=== PATIENT | female | born 1980 ===

== ENCOUNTER 2016-11-11 01:41 | Inpatient (IN) | payer MEDICARE ==
[2016-11-11 01:54] VITALS: O2SAT 100
--- NOTE | 2016-11-11 01:54 | ED PDOC ---
Psych Transfer Clearance - Clearance Statement Clearance Statement: Reviewed vital signs, lab results and transfer papers. Patient clinically stable for psychiatric admission.
[2016-11-11] MEDS ORDERED: Alum-Mag Hydrox-Simethicone Susp (30 mL) PO PRN (02:11)
[2016-11-11] MEDS ORDERED: DiphenhydrAMINE 50 mg/ml Inj IM PRN (02:11)
[2016-11-11] MEDS ORDERED: Magnesium Hydroxide Susp 30 ml UD PO PRN (02:11)
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
[2016-11-11 06:31] LABS: ALB/GLOB RATIO 1.5 (1.0-2.1); ALKALINE PHOSPHATASE 60 U/L (38-126); ALT/SGPT 27 U/L (9-52); AST/SGOT 24 U/L (14-36); BILIRUBIN,TOTAL 0.6 mg/dl (0.2-1.3); BLOOD UREA NITROGEN 12 mg/dl (7-17); CARBON DIOXIDE 24 mmol/L (22-30); CHLORIDE 103 mmol/L (98-107); CHOLESTEROL 194 mg/dL (0-199); GFR AFRICAN-AMERICAN > 60; GLUCOSE,RANDOM 102 mg/dL (65-105); SODIUM 141 mmol/l (132-148); TOTAL PROTEIN 7.9 G/DL (6.3-8.2)
[2016-11-11 06:50] LABS: T4 7.83 ug/dl (5.5-11.0)
[2016-11-11 07:01] LABS: THYROID STIMULATING HORMONE 2.94 mIU/ML (0.46-4.68)
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
--- NOTE | 2016-11-12 15:16 | PCM.PYCHPN ---
Psychiatric Progress Note - Psychiatric Progress Note Patient seen today, length of contact: 30 minutes Patient Chief Complaint: I am hurt because they are trying to make my son hate me Problems Identified/Issues Discussed: depressed mood Medical Problems: no current medical problems reported Diagnostic Results: no notable results DSM 5 Symptoms Update: adjustment disorder with depressed mood Medication Change: Yes (start antidepressant) Medical Record Reviewed: Yes Consults ordered or reviewed: none at current time Mental Status Examination - Cognitive Function Orientation: Person, Situation Memory: Intact Decription of patient's judgement and insights: impaired insight poor judgment - Affect Affect: Broad, Constricted - Speech Speech: Loud Additional comments: circumstantial - Language Additional comments: intact - Formal Thought Process Formal Thought Process: No Impairment, Circumstantial - Suicidal Ideation Suicidal Ideation: No - Homicidal Ideation Homicidal Ideation: No Goal/Treatment Plan - Goal/Treatment Plan Need for Continued Stay: Severe functional impairment Progress Toward Problem(s) and Goals/Treatment Plan: fair Estimated Date of D/C: 11/15/16 - Smoking Cessation Smoking Cessation Initiated: No Reason for not providing: pt denied smoking
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
[2016-11-17 16:47] VITALS: RESP 18
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
[2016-11-18 16:55] VITALS: BP 110/64; PULSE 71; TEMP 97.2
== END 2016-11-18 18:45 | disposition home or self-care (01) | DRG 881 ==
LOC: H.ER 01:41 → H.PSYCH 01:55
PROVIDERS: ADMIT Psychiatry & Neurology Psychiatry; ATTEND Psychiatry & Neurology Psychiatry
PROC: GZHZZZZ Group Psychotherapy (ICD-10-PCS; principal; 2016-11-11)
DX: F32.9 Major depressive disorder, single episode, unspecified (principal); F41.9 Anxiety disorder, unspecified